=== PATIENT | male | born 1960 | race Caucasian/White ===

== ENCOUNTER 2018-03-22 08:43 | Inpatient (IN) ==
--- NOTE | 2018-03-22 08:01 | Discharge Summary ---
Orders not resulted at time of discharge: Pending orders 03/22/18 00:01 XR shoulder complete RT [XR] Routine H/H [Hemoglobin and Hematocrit] [HEME] Routine Date of Encounter: 03/23/18 Time of Encounter: 13:50 - Discharge Diagnosis (1) Status post reverse total replacement of right shoulder Priority: Primary Status: Acute (2) Rotator cuff arthropathy of right shoulder Priority: Primary Status: Acute (3) HTN (hypertension) Priority: Secondary Status: Acute Qualifiers: Hypertension type: unspecified Qualified Code(s): I10 - Essential (primary) hypertension (4) Tobacco dependence Priority: Secondary Status: Acute - Hospital Course Hospital course: Mr. Morrison is a 57 year old male status post right TSR reverse 03/22/18 with medical history of HTN and tobacco dependence. He participated in therapy and had uneventful hospital course. Stable for discharge. Patient seen at bedside, without complaints. A&O x 3 Afebrile, vital signs stable. Labs reviewed. H/H - 14.8/42.6 stable, asymptomatic Pain control: adequate after application of lidocaine patch Participating in PT. All questions and concerns addressed. Educated on use of incentive spirometer. Encouraged ambulation and proper hydration. Patient educated on post-operative restrictions and post-operative care. Assessment and plan: Continue with postoperative care Discharge plan: Home with home health, discharge today. - Time Spent with Patient Total time spent providing and/or coordinating discharge services: - Discharge Medications Home Medications: Atenolol/Chlorthalidone [Tenoretic 100 Tablet] 1 tab PO DAILY 03/22/18 [History] Atorvastatin Calcium [Lipitor] 20 mg PO DAILY 03/22/18 [History] Diclofenac Sodium 1 appl TD TID PRN 03/22/18 [History] Docusate [Colace] 100 mg PO BID 10 Days #20 capsule 03/22/18 [Rx] Meloxicam 15 mg PO DAILY 03/22/18 [History] OxyCODONE Immed Rel [Roxicodone 5 MG] 5 mg PO Q6HR PRN 7 Days #28 tablet 03/22/18 [Rx] Sildenafil Citrate 100 mg PO DAILY PRN 03/22/18 [History] Allergies/Adverse Reactions: Allergy/AdvReac Type Severity Reaction Status Date / Time No Known Allergies Allergy Verified 03/22/18 09:42 Date of admission: 03/22/18 Primary care physician: Dion Vila MD Discharging clinician: Jose Angel Ortiz Anticipated date of discharge: 03/23/18 Labs on day of discharge: Short CBC 03/23/18 Range/Units 06:21 Hgb 14.8 (12.9-16.9) g/dL Hct 42.6 (37.5-50.1) % BMP 03/23/18 Range/Units 06:21 Sodium 134 L (136-145) mEq/L Potassium 3.2 L (3.5-5.1) mEq/L Chloride 102 (98-107) mEq/L Carbon Dioxide 27 (23-29) mEq/L BUN 13 (6-20) mg/dL Creatinine 0.64 L (0.70-1.30) mg/dL Glucose 118 H (70-105) mg/dL Calcium 8.9 (8.6-10.3) mg/dL - Impressions Shoulder X-Ray 03/22/18 00:01 IMPRESSION: Expected postoperative changes status post right shoulder arthroplasty, without evidence of orthopedic hardware complication. D/ / 03/22/2018 15:37:19 Brian Ramirez MD / [facility] Interpreting Provider: Brian Ramirez MD - Patient Status Disposition: Home Health Service Condition: Good Functional capacity at discharge: independent ambulation Overall status at discharge: patient is back to baseline - Discharge Instructions Follow Up With: Jose Angel Ortiz MD [Partnered Physician] - Dion Vila MD [Primary Care Provider] - - Diet and Activity Activity: as per physical therapy Diet: advance to your usual diet
--- NOTE | 2018-03-22 08:03 | Physician Discharge Referral ---
Home Health/Hosp Referral Info Transfer to: Home Health Attending Provider: Angel - Diagnosis (1) Status post reverse total replacement of right shoulder Priority: Primary Status: Acute (2) Rotator cuff arthropathy of right shoulder Priority: Primary Status: Acute (3) HTN (hypertension) Priority: Secondary Status: Acute (4) Tobacco dependence Priority: Secondary Status: Acute - Respiratory Orders None Smoking Cessation: Smoking cessation has been advised. For more information, call the [place] Tobacco Quit Line at 6-557-ZOGY-NOW. - Diet/Nutrition Diet/Nutrition Orders: Regular - Activity Activity Orders: Up ad art, Ambulate, Chair - Services Needed Following services are medically necessary services: Nursing, Home Health Aide, Physical Therapy, Occupational Therapy Home Care Orders: Opsite dressing, leave intact until first post-operative visit. Zipline/Paulo in place, plan to remove at post-operative day #14-16. If dressing becomes >50% saturated, contact office, remove dressing and place appropriate dressing in its place. Do not allow for dressing to get wet. Shoulder Precautions x 6 weeks. Apply cold therapy wrap 3-6x/day for 20 minutes at a time. Encourage ambulation throughout the day. Use Incentive spirometer 10x/hour. Elevate affected extremity above heart as tolerated. NWB to affected upper extremity x 6 weeks. Will remove brace at first post-operative appointment. OK to remove during PT/OT and Home exercises. - Transfer Medications Home Medications: Atenolol/Chlorthalidone [Tenoretic 100 Tablet] 1 tab PO DAILY 03/22/18 [History] Atorvastatin Calcium [Lipitor] 20 mg PO DAILY 03/22/18 [History] Diclofenac Sodium 1 appl TD TID PRN 03/22/18 [History] Docusate [Colace] 100 mg PO BID 10 Days #20 capsule 03/22/18 [Rx] Meloxicam 15 mg PO DAILY 03/22/18 [History] OxyCODONE Immed Rel [Roxicodone 5 MG] 5 mg PO Q6HR PRN 7 Days #28 tablet 03/22/18 [Rx] Sildenafil Citrate 100 mg PO DAILY PRN 03/22/18 [History] Allergies/Adverse Reactions: Allergy/AdvReac Type Severity Reaction Status Date / Time No Known Allergies Allergy Verified 03/22/18 09:42 Certification: Further, I certify that my clinical findings support that this patient is homebound (i.e. absences from home require considerable and taxing effort and are for medical reasons or adventism services or infrequently or short duration when for other reasons) because: Homebound Reason: Post-surgery restriction and or conditions limit ability to leave home Attestation: My signature below is to certify that this patient is under my care and that I, or nurse practitioner, or a physician assistant librarian working with me, has a [id number] encounter with this patient.
[2018-03-22] MEDS ORDERED: Albuterol 2.5 MG/3 ML NEBULIZER IH ONE (08:59)
[2018-03-22] MEDS ORDERED: CeFAZolin Syr 2,000MG/20 ML 2,000 MG/20 ML SYRINGE IVPB ONE (08:59)
[2018-03-22] MEDS ORDERED: Ringers Solution, Lactated 1,000 ML IVC SCH ×2 (09:00→13:56)
[2018-03-22] MEDS ORDERED: *HR* Midazolam HCl 2 MG/2 ML VIAL ONE ×2 (09:22→12:02)
[2018-03-22] MEDS ORDERED: *HR* FentaNYL (PF) 100 MCG/2 ML VIAL ONE (09:22)
[2018-03-22] MEDS ORDERED: Ondansetron 4 MG/2 ML VIAL ONE (09:22)
[2018-03-22] MEDS ORDERED: *HR* Succinylcholine 200 MG/10 ML VIAL IVP ONE (09:22)
[2018-03-22] MEDS ORDERED: Lidocaine -MPF 2% 2 ML VIAL ONE (09:22)
[2018-03-22] MEDS ORDERED: *HR* Propofol 200 MG/20 ML VIAL IVP ONE (09:22)
[2018-03-22] MEDS ORDERED: Dexamethasone 4 MG/ML VIAL ONE (09:23)
--- NOTE | 2018-03-22 09:33 | Anesthesia Evaluation PreOp ---
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: Denies Any Significant HX Other Medical History: Other (anxiety) Anesthesia History: No Prior Anesthetic Complications, Past Anesthesia Alcohol Use: none Drug use: none Medications and Allergies Atenolol/Chlorthalidone [Tenoretic 100 Tablet] 1 tab PO DAILY 03/22/18 [History] Atorvastatin Calcium [Lipitor] 20 mg PO DAILY 03/22/18 [History] Diclofenac Sodium 1 appl TD TID PRN 03/22/18 [History] Docusate [Colace] 100 mg PO BID 10 Days #20 capsule 03/22/18 [Rx] Meloxicam 15 mg PO DAILY 03/22/18 [History] OxyCODONE Immed Rel [Roxicodone 5 MG] 5 mg PO Q6HR PRN 7 Days #28 tablet 03/22/18 [Rx] Sildenafil Citrate 100 mg PO DAILY PRN 03/22/18 [History] Allergy/AdvReac Type Severity Reaction Status Date / Time No Known Allergies Allergy Verified 03/22/18 09:42 - Meds/Allergy Pre-op Review Medications Reviewed: Yes Allergies Reviewed: Yes Beta Blockers on Current Med List: Yes If Beta Blockers taken, Date/Time (Last Dose taken): 03/22/2018 at 0700 Anesthesia Results - Labs Laboratory Tests 03/11/18 03/11/18 03/11/18 09:00 09:00 09:00 WBC 12.3 H Hgb 16.9 Hct 49.4 Plt Count 269 PT 10.9 INR 1.0 APTT 29.5 Sodium 135 L Potassium 4.2 BUN 14 Creatinine 0.90 - Imaging EKG: report reviewed (03/11/2018 SINUS BRADYCARDIA WITH FIRST DEGREE AV BLOCK EARLY REPOLARIZATION) Anesthesia Exam O2 Sat Height 1.75 m Weight 79.832 kg O2 Sat by Pulse Oximetry 98 O2 Sat by Pulse Oximetry 98 Vital Signs Temp Pulse Resp BP Pulse Ox 97.7 F 60 18 147/95 98 03/22/18 08:58 03/22/18 08:58 03/22/18 08:58 03/22/18 08:58 03/22/18 08:58 Height: 5'9" Weight: 176 lbs NPO (# of Hours): 8 Pain Scale: 6 (right shoulder) Pain Scale Used: Numeric (1 - 10) - HEENT Pupil (Motor): EOMI Mallampati: II Teeth: Normal Oral Opening: Greater than 3 - DERRICK FOLLOWER LOC: Oriented DERRICK FOLLOWER Motor: Normal RUE, Normal LUE, Normal RLE, Normal LLE, Normal Face DERRICK FOLLOWER Sensory: Normal: RUE, LUE, RLE, LLE, Face - Cardiac Rhythm: Regular Murmur: None - Pulmonary Breath Sounds: bilateral Clear Respiratory Effort: Symmetrical Anesthesia Assess/Plan ASA Score: 2 Level of consciousness: Cooperative, Oriented, Tranquil Anesthetic Plan: General, Regional Nerve Block Regional Nerve Block Plan: Supraclavicular Monitoring Plan: Standard Monitors Recovery Plan: PACU
[2018-03-22] MEDS ORDERED: ROPIVACAINE HCL/PF 0.5% 30 ML VIAL ONE ×2 (09:51→10:17)
[2018-03-22] MEDS ORDERED: Bupivacaine/Clonidine Syringe 1 EACH SYRINGE ONE ×2 (09:52→10:17)
--- NOTE | 2018-03-22 10:01 | History & Physical Report ---
Date of Encounter: 03/22/18 Time of Encounter: 10:01 24 Hour HP Update - Instructions Instructions: If the History and Physical is less than 30 days old and was completed prior to A.M. admission and or procedure and has NOT been updated on calendar day of procedure please complete this update prior to performing procedure. - Update Patient reports changes in Medical Condition: No Changes in examination, assessment, or condition: No Changes in Medication: No Preop tests/diagnostics Reviewed: Yes Surgery Remains Indicated: Yes Consent for Planned Operative Procedure(s) Verified: Yes - Pre-Operative Checklist Preoperative Checklist Indicated: No Prophylactic Antibiotic Ordered: Yes Is VTE Prophylaxis Indicated?: Yes
[2018-03-22] MEDS ORDERED: *HR* OxyCODONE Immed Rel 5 MG TABLET PO PRN (10:05)
[2018-03-22] MEDS ORDERED: Ethanol\\Acetic Acid\\Na Ace\\Ben 1,000 ML IRRIG.SOLN IR ONE (10:30)
--- NOTE | 2018-03-22 10:39 | Anesthesia Procedures ---
Date of Encounter: 03/22/18 Time of Encounter: 10:25 Procedures: Anesthesia - Nerve Block Procedure Date: 03/22/18 Time: 10:25 Allergies/Adv Reactions: NKDA Pre-op Diagnosis: Right shoulder rotator cuff arthropathy Surgical Procedure: Right Total Shoulder Replacement, Reverse Checklist: Correct Patient Identifier, Correct procedure, History checked Correct side: Right Blood Thinner: No Monitor Applied: EKG, BP, Pulse Oximetry Supplemental Oxygen via Nasal Cannula (L/min): 2 Sedation: Versed (mg): 2 Sedation: Fentanyl (mcg): 100 Indication: Post Op Analgesia Pre-op Neuro Deficits: No Block Type: Supraclavicular, Other (SCP, ICB) Catheter placed: No Sterile Technique: Yes Ultrasound used: Yes Anatomy identified: Yes Visual spread of Local: Yes Neuro Stimulation: No Nerve Stimulator Range: 0.2 - 0.4 mA Blood on Needle Aspiration: No Smooth Injection of Local: Yes Pain with Injection of Local: No Prep: Chlorhexadine Needle: 22 x 50 mm Stimuplex Local: 0.25% Bupivicaine w/Clonidine 20 mcg/cc (SCP, ICB), Ropivacaine (0.5% for supraclavicular), Other (Decadron 8mg) Volume (cc): 50 Number of Attempts: 1 Complications: None/effective block Vitals: Vital Signs Temperature 97.7 F 03/22/18 08:58 Pulse Rate 60 03/22/18 08:58 Respiratory Rate 18 03/22/18 08:58 Blood Pressure 147/95 03/22/18 08:58 O2 Sat by Pulse Oximetry 98 03/22/18 08:58 Temperature 97.7 F 03/22/18 08:58 Pulse Rate 59 03/22/18 10:35 Respiratory Rate 16 03/22/18 10:35 Blood Pressure 133/93 03/22/18 10:35 O2 Sat by Pulse Oximetry 98 03/22/18 10:35
--- NOTE | 2018-03-22 11:49 | Orthopedic Operative Note ---
Date of procedure: 03/22/18 Pre-op diagnosis: Right shoulder cuff tear arthropathy Post-op diagnosis: same Procedure: Procedure: Total Shoulder Replacment Reverse, right Estimated blood loss: 50 cc Hardware: Metal and polyethylene replacement: Arthrex 28, +2 , 30 mm screw glenoid baseplate, 4 locking 5.5 screw, 42+4 glenosphere, 9 apex. humeral stem, poly insert 3 Exam Under anesthesia: Full motion no instability Procedural Notes: Irreparable rotator cuff tear Operative procedure: The patient was brought to the operating room and placed on the operating room table. After general anesthesia was administered the operative shoulder was examined. Findings were noted. The patient was placed in the modified beachchair position. All pressure points were padded appropriately. And the head was stabilized in the neutral position. The operative extremity was preppe d and draped in the sterile surgical fashion. The patient received IV antibiotics prior to skin incision. A standard deltopectoral approach was made to the operative shoulder. Incision was made to the skin and subcutaneous tissue,hemo stasis was obtained with Bovie cautery. Using careful blunt dissection the cephalic vein was identified and mobilized medially. The deltopectoral interval was developed and the clavipectoral fascia was incised. The subscap was released off the lesser tuberosity and tagged with #2 FiberWire suture subscap was irreparable. The humerus was dislocated patient noted to have irreparable tear supraspinatus tendon, and the humeral cut was made along the anatomic neck. Anterior and posterior Bankart retractors were placed to expose the glenoid. The glenoid yared de was seated and the centering hole was made. It was reamed with the appropriate reamer. The 28, +2, 30 mm screw, baseplate was seated and secured with 4 locking 5.5 screw. The baseplate was irrigated and dried and the 42+4 Glenosphere was seated and secured with the Lo taper. The Lo taper was tested and found to be secure, glenosphere fixation was secondarily secured with the central screw. The humerus was redislocated and prepared with the diaphyseal reamers, followed by a broaching process up to the appropriate size 9 apex in the patient's anatomic version. The metaphyseal reamer was then utilized. Trial reduction found the shoulder to be relocatable. Trial components were removed and 9 apex. stem was impacted in place in the patient's anatomic version. Trial reduction found the shoulder to be relocatable and stable with the appropriate 3 Trial component was removed and the real implant was seated and secured the shoulder was reduced. The shoulder had excellent motion and excellent stability and no evidence of dislocation. The deep tissue was irrigated with pulse irrigation. The PA close the shoulder. The deltopectoral interval was closed with a running #1 PDS suture, subcutaneous tissue was irrigated and closed with 0 PDS suture, the skin was closed with Dermabond. The patient was placed in a sterile dressing, abduction brace and extubated. The patient was then transferred to the recovery room in stable condition. Anesthesia: GETChristopher Surgeon: Jose Angel Ortiz Was there an transition assistant present: Yes Chemical Laboratory Scientist: Yadi Lunsford Estimated blood loss (cc): 50 Condition: stable Disposition: PACU
[2018-03-22] MEDS: *HR* HYDROmorphone (PF) 1 MG/ML SYRINGE IVP PRN ×2 (12:37→12:42)
--- NOTE | 2018-03-22 13:05 | Anesthesia Evaluation Post Op ---
Date of Encounter: 03/22/18 Time of Encounter: 13:04 - Discharge PostOp Status: Transfer Patient to floor (Patient's vital signs have been reviewed. Patient is stable postoperatively and has adequately recovered from anesthesia. Patient is determined to have stable airway patency and respiratory function including respiratory rate and oxygen saturation. Patient has a stable heart rate, blood pressure and adequate hydration. Patients mental status is acceptable. Patients temperature is appropriate. Pain and nausea are adequately controlled.)
[2018-03-22] MEDS ORDERED: Naloxone 0.4 MG/ML INJ IVP PRN (13:56)
[2018-03-22] MEDS ORDERED: Sennosides 8.6 MG TABLET PO PRN (13:56)
[2018-03-22] MEDS ORDERED: *HR* OxyCODONE/APAP 5/325 TABLET PO PRN (13:56)
[2018-03-22] MEDS ORDERED: MOM Conc 10 ML UD.LIQ PO PRN (13:56)
[2018-03-22] MEDS ORDERED: Temazepam 15 MG CAPSULE PO PRN (13:56)
[2018-03-22] MEDS ORDERED: traMADol 50 MG TABLET PO PRN (13:56)
[2018-03-22] MEDS ORDERED: Ondansetron 4 MG/2 ML VIAL IVP PRN (13:56)
[2018-03-22] MEDS ORDERED: NON-FORMULARY MEDICATION 1 EACH EACH (Sildenafil Citrate [Sildenafil Citrate] 100 MG) PO PRN (13:56)
[2018-03-22 15:53] LABS: Hematocrit 46.4 % (37.5-50.1); Hemoglobin 15.9 g/dL (12.9-16.9)
[2018-03-22] MEDS: *HR* Enoxaparin 30 MG/0.3 ML SYRINGE SQ SCH (17:26)
[2018-03-22] MEDS: *HR* OxyCODONE Immed Rel 5 MG TABLET PO PRN ×2 (17:39→22:40)
[2018-03-22] MEDS ORDERED: *HR* Enoxaparin 30 MG/0.3 ML SYRINGE SQ SCH (18:00)
[2018-03-23] MEDS: *HR* Enoxaparin 30 MG/0.3 ML SYRINGE SQ SCH (06:24)
[2018-03-23] MEDS: *HR* OxyCODONE Immed Rel 5 MG TABLET PO PRN ×3 (06:34→14:48)
--- NOTE | 2018-03-23 06:46 | Orthopedics Progress Note ---
Date of Encounter: 03/23/18 Time of Encounter: 06:45 Subjective Interval history: Patient was seen this morning doing well without complaints. Afebrile vital signs stable. Operative extremity: still experiencing effects of nerve block Dressing clean dry and intact Calves nontender Assessment and plan: Continue with postoperative care Objective Vital signs: Vital Signs Temp Pulse Resp BP Pulse Ox 03/23/18 03:57 98.5 F 86 16 124/79 96 03/23/18 00:42 97.6 F 87 17 154/90 96 03/22/18 19:40 97.8 F 73 16 124/82 93 03/22/18 16:09 155/82 03/22/18 15:48 98.0 F 75 14 133/87 03/22/18 14:10 97.7 F 65 14 144/89 94 03/22/18 13:40 97.7 F 64 14 142/93 96 03/22/18 13:16 97.4 F L 67 14 145/102 94 03/22/18 13:06 97.9 F 65 13 142/103 94 03/22/18 12:56 65 12 135/98 96 03/22/18 12:46 68 15 152/104 96 03/22/18 12:36 97.3 F L 67 12 146/98 96 03/22/18 12:26 69 14 153/109 97 03/22/18 12:16 66 12 130/106 100 03/22/18 12:06 97.4 F L 65 12 144/89 99 03/22/18 10:50 57 16 135/97 98 03/22/18 10:35 59 16 133/93 98 03/22/18 10:20 58 16 145/101 99 03/22/18 09:17 18 147/95 98 03/22/18 08:58 97.7 F 60 18 147/95 98 Intake and Output 03/22/18 03/22/18 03/23/18 15:59 23:59 07:59 Intake Total 20 / 20 340 / 340 150 / 150 Output Total 50 / 50 400 / 400 Balance -30 / -30 -60 / -60 150 / 150 Intake: IV Fluids 20 / 20 100 / 100 Ancef Syringe 2,000 MG/20 ML 2, 20 / 20 000 mg In 20 ml @ 200 mls/hr IVPB PREOP ONE Rx#:[id number] Ancef 2,000 MG In 0.9 % Sodium 100 / 100 Chloride 100 ML @ 200 mls/hr IVPB Q8HR CALEB Rx#:[id number] Oral 240 / 240 150 / 150 Output: Urine 400 / 400 Estimated Blood Loss 50 / 50 Other: Meal Dinner Percent of Meal Consumed 100% Weight 79.832 kg 82.8 kg Patient Weight 03/23/18 23:59 Weight 82.8 kg - Labs CBC & BMP: 03/22/18 15:40 Consult Discharge Plan - Plan Referrals: Dion Vila MD [Primary Care Provider] -
[2018-03-23 07:45] LABS: Hematocrit 42.6 % (37.5-50.1); Hemoglobin 14.8 g/dL (12.9-16.9)
[2018-03-23 07:55] LABS: BUN/Creatinine Ratio 20 (6-26); Blood Urea Nitrogen 13 mg/dL (6-20); Calcium 8.9 mg/dL (8.6-10.3); Carbon Dioxide 27 mEq/L (23-29); Chloride 102 mEq/L (98-107); Glucose 118 mg/dL (70-105); Osmolality,Calculated 279 (280-300); Potassium 3.2 mEq/L (3.5-5.1); Sodium 134 mEq/L (136-145); eGFR For Non-African Americans > 60 (> 60)
[2018-03-23 14:51] VITALS: BP 159/89
== END 2018-03-23 15:25 | disposition home or self-care (01) | DRG 322 ==
LOC: SAMDAY 08:43 → 3NENU 13:53
PROVIDERS: ADMIT Orthopaedic Surgery; ATTEND Orthopaedic Surgery